=== PATIENT | female | born 1985 | race Caucasian/White ===

== ENCOUNTER 2020-12-02 12:21 | Emergency (ER) | payer OTHER, SELFPAY ==
[2020-12-02 12:23] VITALS: BP 147/88; PULSE 108; RESP 16; TEMP 36.5; O2SAT 99; BMI 23.3
[2020-12-02 13:12] LABS: Absolute Lymphocyte Count 1.38 X10^3/uL (0.83-4.51); Absolute Neutrophil Count 4.4 X10^3/uL (2.0-7.7); Basophil# 0.02 X10^3/uL; Basophil% 0.3 % (0-1); Eosinophil# 0.03 X10^3/uL; Eosinophils% 0.5 % (0-5); Hematocrit 41.6 % (37-47); Hemoglobin 14.2 g/dL (12.0-15.0); Lymphocyte # 1.38 X10^3/ul (4.0); Lymphocyte % 22.5 % (19-41); Mean Corp Hgb Conc 34.1 g/dL (32-36); Mean Corpuscular Hgb 29.8 pg (27.0-32.0); Mean Corpuscular Volume 87.2 fL (81-99); Mean Platelet Vol. 9.9 fl (6.2-12.0); Monocyte# 0.33 X10^3/uL; Monocyte% 5.4 % (0-10); NRBC Flagged by Analyzer 0 % (0-5); Neutrophil # 4.36 X10^3/uL (2.7-7.7); Neutrophil % 71.1 % (47-70); Platelet Count 259 K/mm3 (150-450); RBC Distribution Width CV 11.9 % (11.6-14.6); RBC Distribution Width SD 38.2 fl (35.1-43.9); Red Blood Count 4.77 M/mm3 (4.2-5.4); White Blood Count 6.1 K/mm3 (4.4-11.0)
[2020-12-02 13:23] LABS: International Normalized Ratio 1.1; Prothrombin Time (Protime)PT. 13.2 SECONDS (11.7-14.9)
--- NOTE | 2020-12-02 14:16 | ED.VIS.GI ---
History of Present Illness Chief Complaint: GI Bleed Informant: Patient - Abdominal Pain/Flank Pain Onset: Weeks Timing: Intermittent Quality: Cramping Narrative: 34-year-old female with history of endometriosis currently undergoing IVF presenting with bright red blood per rectum. Patient states she is had bleeding with bowel movements for the past week and a half. Usually it will resolve after her menstrual cycle starts but it has persisted. She is some slight pelvic cramping but she is not sure if this is from the bleeding or associated with her menstrual cycle. She denies any bleeding disorders. She is not on any blood thinners. She denies any abnormal vaginal bleeding or dysuria. She denies any rectal pain. She only has bleeding when she has a bowel movement and does not have bleeding at other times. Patient states the blood seems to fill the toilet bowl but she can still see to the bottom of it. She denies any clots of blood. She denies any family history of inflammatory bowel disease such as Crohn's disease or ulcerative colitis. She denies any known history of hemorrhoids. She called her primary care office today who recommended she come to the emergency room because they could not see her until December 12. Past Medical History - Allergies and Home Meds Allergies/Adverse Reactions: Allergies No Known Allergies Allergy (Verified 12/02/20 12:22) Primary Care Physician: MADELINE VALDES [Other] Past Medical History: - - Endometriosis Surgical History: noncontributory Lives: Spouse/ Significant Other Smoking Status: Never smoker Review of Systems General: Denies: Chills, Fever, Sweats Eyes: Denies: Visual changes - bilaterally, Diplopia ENT: Denies: Rhinorrhea, Sore throat Cardiovascular: Denies: Chest pain, Palpitations Respiratory: Denies: Dyspnea, Cough, Dyspnea on exertion Gastrointestinal: Reports: Abdominal pain, Hematochezia. Denies: Nausea, Vomiting, Diarrhea, Melena Genitourinary: Denies: Dysuria, Hematuria, Frequency Musculoskeletal: Denies: Back pain, Extremity Pain Skin: Denies: Rash, Wounds Neurological: Denies: Headache, Weakness, Numbness Physical Exam Vital Signs/Narrative: Vital Signs Temp Pulse Resp BP Pulse Ox 12/02/20 12:23 97.7 F L 108 H 16 147/88 H 99 Inital Vital Signs reviewed: Yes General: Well nourished, Well developed, No Acute Distress Head: Normocephalic, Atraumatic Eyes: Perrl, EOMI ENT: Moist mucous membranes, No rhinorrhea Neck: Supple, Nontender Cardiovascular: Regular rate, Regular rhythm, No murmurs Respiratory: No distress, CTA bilaterally, Chest nontender Abdomen: Soft, Nontender, Nondistended, Normal bowel sounds Rectal: Nontender, - - No external hemorrhoid. No perirectal lesions noted. No large internal hemorrhoid palpated. No blood on digital rectal exam noted. Back: Nontender, Normal Inspection Extremities: Nontender, No edema Skin: Normal color, No rash Neurological: Alert, Oriented x3, Cranial nerves II-XII grossly intact, Normal Strength, Normal Sensation Psychological: Normal affect, Normal Mood Diagnostic/Tx/Re-eval Laboratory Data 12/02/20 12/02/20 13:05 13:05 WBC 6.1 RBC 4.77 Hgb 14.2 Hct 41.6 MCV 87.2 MCH 29.8 MCHC 34.1 RDW Std Deviation 38.2 RDW Coeff of Mark 11.9 Plt Count 259 MPV 9.9 Immature Gran % (Auto) 0.200 Neut % (Auto) 71.1 H Lymph % (Auto) 22.5 Walton % (Auto) 5.4 Eos % (Auto) 0.5 Baso % (Auto) 0.3 Absolute Neuts (auto) 4.4 Absolute Lymphs (auto) 1.38 Nucleated RBC % 0 PT 13.2 INR 1.1 - Medical Decision Making Patient is evaluated for bright red blood per rectum. She is well-appearing. She is mildly tachycardic but does not appear to be in any type of hemorrhagic shock. I did check CBC and PT/INR which are grossly normal. Signs of obvious coagulopathy or platelet abnormalities or anemia. I think patient stable for outpatient follow-up. Should be referred to surgery for further evaluation. I suspect this is internal hemorrhoids that are bleeding. Patient is counseled on signs and symptoms requiring return to the emergency room. Patient verbalizes agreement and understand this plan. Patient discharged home in stable and improved condition. ED Disposition - Plan for ED Patient: Disposition: Home or Assisted Living Diagnosis: Rectal bleeding Instructions: ED Lower GI Bleeding (Stable) Referrals: MADELINE VALDES [Other] Lam Nunez MD [STAFF PHYSICIAN] - Additional Instructions: I suspect her bleeding is from hemorrhoids however I cannot be certain today. Please follow-up with surgery for further evaluation of this bleeding.
[2020-12-02 14:49] VITALS: BP 130/71; PULSE 95; RESP 16; O2SAT 99
== END 2020-12-02 14:50 | disposition home or self-care (01) ==
PROVIDERS: Emergency Provider Emergency Medicine
DX: K62.5 Hemorrhage of anus and rectum (principal)
CPT/HCPCS: 85025; 85610; 99282

== ENCOUNTER 2020-12-19 08:49 | Day surgery (SDC) | payer OTHER, SELFPAY ==
[2020-12-05 13:54] VITALS: BMI 24.2
--- NOTE | 2020-12-19 07:17 | HP_ITS ---
Intake Vital Signs 12/05/20 Height 5 ft 6 in 12/05/20 Weight: 150 lb 12/05/20 BMI 24.2 12/05/20 BP 145/87 H 12/05/20 Blood Pressure Location Rt brachial 12/05/20 Position Sitting 12/05/20 Respiration 16 Intake Visit Reasons: ER F/U RECTAL BLEEDING Chief Complaint: rectal bleeding Range Feeder Required: No Is patient in pain?: No Allergies No Known Allergies Allergy (Verified 12/05/20 13:55) Medications Femara 1 tablet PO DAILY 08/12/17 [History Confirmed 12/05/20] Hcg Shot 1 dose IM DAILY 08/12/17 [History Confirmed 12/05/20] Levothyroxine [Synthroid] 25 mcg PO DAILY 08/12/17 [History Confirmed 12/05/20] Lorazepam [Ativan] 1 mg PO DAILY PRN PRN #10 tab 08/12/17 [Rx Confirmed 12/05/20] PFSH Medical History (Updated 12/05/20 @ 14:[address] Lam Nunez MD) Endometriosis (Acute) Rectal bleeding (Acute) Surgical History (Updated 12/05/20 @ 13:53 by Jesi Rolle) S/P section (Acute) S/P ovarian cystectomy (Acute) S/P tonsillectomy (Acute) Family History (Updated 12/05/20 @ 13:53 by Jesi Rolle) Mother Hypertension Social History (Updated 12/05/20 @ 14:[address] Lam Nunez MD) Smoking Status: Never smoker alcohol intake: never HPI HPI HPI: CAREY YATES, is a 34 F who presents to the office today for HPI HPI HPI: CAREY YATES, is a 34 F who presents to the office today for rectal bleeding. The patient reports that several times she has had bright red blood per rectum. She thinks this coincides and starts a few days before her period and stops afterwards. She is not having any constipation or hard stools. She has no pain with defecation. She has no family history of colon cancer. She reports no straining or sedentary lifestyle. ROS General General: No weight change or fatigue Cardio Cardiovascular: No murmur, pacemaker, heart disease, atrial fibrillation, high blood pressure, heart attack, heart stent, palpitations, shortness of breat with exertion or chest pain Psych Psychiatric: No depression or anxiety Resp Respiratory: No shortness of breath, No sleep apnea, No cough, No COPD, No asthma, No emphysema, No wheezing Gastro Gastrointestinal: No abdominal pain, No nausea or vomiting, No diarrhea, No constipation, Yes blood in stool, No acid reflux, No hemorrhoids, No ulcers, No gallbladder problem, No black,tarry stools Delroy Hematologic: No blood thinners Exam Const General: cooperative Orientation: alert, oriented x3 Resp Effort & Inspection: normal respiratory effort Auscultation: clear to auscultation bilaterally Cardio Rate: regular rate Rhythm: regular rhythm Heart Sounds: no murmurs GI Inspection: non-distended Palpation: soft, nontender Assessment & Plan Problems 1. Rectal/anal hemorrhage K62.5 Plan The patient reports bright red bleeding per rectum with bowel movements few days preceding her period and lasting until after her period. She reports no pain with defecation or history of bleeding in the past. I recommend colonoscopy to start to check for more proximal bleeding source and retroflexion for internal hemorrhoids. If the patient does have hemorrhoids I will discuss hemorrhoidectomy with her. I explained endoscopy in detail to the patient. I explained the risks including but not limited to stroke or heart attack with anesthesia, perforation of the GI tract, bleeding, infection. I explained that any of these could necessitate further emergency surgery. The patient understands and all questions were answered sufficiently. The patient wishes to proceed with procedure. Lam Nunez MD Pager: [facility] [address] [place] [address], [address] [place] [address] Office: Orders Orders: Colonoscopy Today K62.5 Coding Level of Care Code Off vis,new,level 3 Diagnoses Rectal/anal hemorrhage K62.5 I have re-examined the patient. There are no clinical changes since date of exam.
[2020-12-19 09:13] VITALS: BP 136/84; PULSE 107; RESP 18; TEMP 36.5; O2SAT 98; BMI 22.9
[2020-12-19 09:17] LABS: Internal QC Validated? YES +Cl - CLEAR BKGD; Pregnancy, Urine Negative Negative
[2020-12-19] MEDS: Lactated Ringers 1,000 ML 100 ML IV (09:22)
[2020-12-19 10:10] VITALS: BP 109/64; BP 136/84; PULSE 81; RESP 16; TEMP 36.6; O2SAT 98
--- NOTE | 2020-12-19 10:12 | OP.COLON_ITS ---
Patient Name: Pricila Dunn Procedure Date: 12/19/2020 9:46 AM Date of : 1985 Age: 34 Procedure: Colonoscopy Indications: Rectal bleeding Providers: Lam Nunez MD Referring MD: Lady Linares Medicines: Monitored Anesthesia Care Patient Profile: This is a 34 year old female. Refer to note in patient chart for documentation of history and physical. Last Colonoscopy: none. The patient's first colonoscopy is today. Complications: No immediate complications. Procedure: Pre-Anesthesia Assessment: - Prior to the procedure, a History and Physical was performed, and patient medications and allergies were reviewed. The patient's tolerance of previous anesthesia was also reviewed. The risks and benefits of the procedure and the sedation options and risks were discussed with the patient. All questions were answered, and informed consent was obtained. Prior Anticoagulants: The patient has taken no previous anticoagulant or antiplatelet agents. After reviewing the risks and benefits, the patient was deemed in satisfactory condition to undergo the procedure. After I obtained informed consent, the scope was passed under direct vision. Throughout the procedure, the patient's blood pressure, pulse, and oxygen saturations were monitored continuously. The Colonoscope was introduced through the anus and advanced to the cecum, identified by appendiceal orifice and ileocecal valve. The colonoscopy was performed without difficulty. The patient tolerated the procedure well. The quality of the bowel preparation was good. Scope In: 9:57:54 AM Scope Withdrawal Time 0 hours 4 minutes 12 seconds Scope Out: 10:06:08 AM Total Procedure Duration Time 0 hours 8 minutes 14 seconds Findings: The entire examined colon appeared normal on direct and retroflexion views. An anal fissure was found on perianal exam. Impression: - The entire examined colon is normal on direct and retroflexion views. - Anal fissure found on perianal exam. - No specimens collected. Recommendation: - Discharge patient to home. - Resume previous diet. - Continue present medications. - Repeat colonoscopy at age 52 for screening purposes. Procedure Code(s): --- Professional --- 11143, Colonoscopy, flexible; diagnostic, including collection of specimen(s) by brushing or washing, when performed (separate procedure) Diagnosis Code(s): --- Professional --- K60.2, Anal fissure, unspecified K62.5, Hemorrhage of anus and rectum CPT copyright 2017 [employer]. All rights reserved. The codes documented in this report are preliminary and upon squirt machine operator review may be revised to meet current compliance requirements. Lam Nunez MD 12/19/2020 10:11:58 AM This report has been signed electronically. Number of Addenda: 0 Note Initiated On: 12/19/2020 9:46 AM
--- NOTE | 2020-12-19 10:12 | OP.CCLET_ITS ---
12/19/2020 Milagros Re : Colonoscopy procedure for Pricila Linares This procedure was performed on Saturday, December 19, 2020. My impressions and recommendations are as follows: Impressions : - The entire examined colon is normal on direct and retroflexion views. - Anal fissure found on perianal exam. - No specimens collected. Recommendations : - Discharge patient to home. - Resume previous diet. - Continue present medications. - Repeat colonoscopy at age 52 for screening purposes. My findings are described in the full procedure note, which is enclosed. If I can be of further assistance, please feel free to contact me at Doctor phone number(s): , Work: . Sincerely, Lam Nunez MD 12/19/2020 10:11:58 AM This report has been signed electronically.
[2020-12-19 10:15] VITALS: BP 119/78; BP 136/84; PULSE 91; RESP 18; O2SAT 97
[2020-12-19 10:20] VITALS: BP 110/80; BP 136/84; PULSE 89; RESP 18; O2SAT 97
[2020-12-19 10:25] VITALS: BP 101/80; BP 136/84; PULSE 70; RESP 18; TEMP 36.7; O2SAT 98
[2020-12-19 10:55] VITALS: BP 136/84
== END 2020-12-19 10:55 | disposition home or self-care (01) ==
LOC: EN 08:51 → AC 08:52
PROVIDERS: Anesthesiology; Visit Provider Surgery
PROC: 0DJD8ZZ Inspection of Lower Intestinal Tract, Via Natural or Artificial Opening Endoscopic (ICD-10-PCS; CPT 45378; principal; 2020-12-19 09:55)
DX: K60.2 Anal fissure, unspecified (principal); K62.5 Hemorrhage of anus and rectum; E06.9 Thyroiditis, unspecified; Z79.899 Other long term (current) drug therapy; Z20.822 Contact with and (suspected) exposure to COVID-19
CPT/HCPCS: 45378; 81025; 87426; C9803; J2405